=== PATIENT | male | born 2000 | race Caucasian/White ===

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

== ENCOUNTER 2020-03-12 11:57 | Emergency (ER) | payer OTHER ==
[~2020-03-12] VITALS: Ht 167.6 cm; Wt 89.5 kg
[2020-03-12 12:08] VITALS: BP 147/67
--- NOTE | 2020-03-12 12:14 | PHYS DOC ---
Past History Past Medical History: Asthma, Bipolar, Other Past Surgical History: No Surgical History Smoking: Cigarettes Alcohol Use: Occasionally Drug Use: Marijuana Adult General Chief Complaint Chief Complaint: INSECT BITE HPI HPI Patient is a 19-year-old otherwise healthy male who presents for "insect bites". Patient reports he has 1 on left lateral forehead, one on his right chin, and one on his anterior right leg. He is unsure what bit him. He reports they "look like pimples with a best, drained some clear fluids, and then got red". He has been putting hydrogen peroxide on these sites. He has not taken anything for pain, denies any pain. Denies any other concerning symptoms such as constitutional symptoms such as COVID, no fever, no recent travel, no recent tick bites or other concerning external vector/stimulus. He reports to ER today because several of his friends told him he should get checked out Review of Systems Review of Systems Fourteen body systems of review of systems have been reviewed. See HPI for pe rtinent positives and negative responses, other solares all other systems are negative, non-pertinent or non-contributory Allergies Allergies Allergies Coded Allergies Type Severity Reaction Last Updated Verified No Known Drug Allergies 09/16/17 No Physical Exam Physical Exam Constitutional: Well developed, well nourished, no acute distress, non-toxic appearance. HENT: Normocephalic, atraumatic, bilateral external ears normal, oropharynx moist, no oral exudates, nose normal. Mild excoriation noted to left lateral forehead and right anterior chin. Site of previous pimples with mild excoriation and skin irritation likely from hydrogen peroxide use Eyes: PERRLA, EOMI, conjunctiva normal, no discharge. Neck: Normal range of motion, no tenderness, supple, no stridor. Cardiovascular:Heart rate regular, sinus rhythm, no murmurs rubs or gallops Lungs & Thorax: Bilateral breath sounds clear to auscultation Abdomen: Bowel sounds normal, soft, no tenderness, no masses, no pulsatile masses. Nonsurgical abdomen, no peritoneal signs Skin: Warm, dry, no erythema, no rash. Excoriation noted to right anterior knee, clinically represent sequelae of resolving folliculitis of x1 hair follicle Back: No tenderness, no CVA tenderness. Extremities: No tenderness, no cyanosis, no clubbing, ROM intact, no edema. Neurologic: Alert and oriented X 3, grossly normal motor & sensory function, no focal deficits noted. Psychologic: Affect normal, judgement normal, mood normal. EKG EKG [] Radiology/Procedures Radiology/Procedures [] Course & Med Decision Making Course & Med Decision Making Patient seen initially on rooming to our ED Vital signs reviewed, hemodynamically stable in no apparent distress and self ambulatory Extensive history and physical exam performed with no concerning/emergent pathology noted Patient asymptomatic, presenting symptoms likely sequelae from resolving folliculitis with potential concern for skin irritation caused by hydrogen peroxide use Supportive care advised. Recommended patient stop using hydrogen peroxide. Recommended continued good hygiene in addition to OTC Aquaphor use Strict return precautions were discussed with good understanding by patient, all questions and concerns addressed prior to discharge Advised patient to follow-up with local PCP for continuity of care in outpatient setting [place] Disclaimer Dragon Disclaimer This electronic medical record was generated, in whole or in part, using a voice recognition dictation system. Departure Departure: Impression: Primary Impression: Folliculitis Disposition: 01 HOME/RESIDENCE PRIOR TO ADM Condition: STABLE Referrals: PCP,NO (PCP) Patient Instructions: Folliculitis Justification of Admission: Justification of Admission: Justification of Admission Dx: N/A ASHOK RED DO Mar 12, 2020 12:14
== END 2020-03-12 12:17 | disposition home or self-care (01) ==
LOC: ER 11:57
DX: L73.9 Follicular disorder, unspecified (principal); F17.210 Nicotine dependence, cigarettes, uncomplicated
CPT/HCPCS: 99281

== ENCOUNTER 2021-08-07 13:19 | Emergency (ER) | payer OTHER ==
[~2021-08-07] VITALS: Ht 180.3 cm; Wt 96.2 kg
[2021-08-07 13:25] VITALS: BP 108/81
--- NOTE | 2021-08-07 13:42 | PHYS DOC ---
Past History Past Medical History: No Pertinent History (GEORGE LOVE APRN) Past Surgical History: No Surgical History (GEORGE LOVE APRN) Smoking: Cigarettes Alcohol Use: Occasionally Drug Use: Marijuana (GEORGE LOVE APRN) Adult General Chief Complaint Chief Complaint: FOOT INJURY PAIN HPI HPI Patient is a 20-year-old male patient presenting today complaining of mild throbbing intermittent right foot pain, symptoms began 3 weeks ago after he rolled his ankle. Patient denies any ankle pain. States he is tired of the pain has the result he came to the ED today to be evaluated. Reports the pain is worse on weightbearing. Denies anything specifically relieving the pain. (GEORGE LOVE APRN) Review of Systems Review of Systems Constitutional: Denies fever or chills [] Musculoskeletal: Reports right foot pain Integument: Denies rash or skin lesions [] Neurologic: Denies headache, focal weakness or sensory changes [] All other systems were reviewed and found to be within normal limits, except as documented in this note. (GEORGE LOVE APRN) Allergies Allergies Allergies Coded Allergies Type Severity Reaction Last Updated Verified No Known Drug Allergies 09/16/17 No (GEORGE LOVE APRN) Physical Exam Physical Exam Constitutional: Well developed, well nourished, no acute distress, non-toxic appearance. [] Skin: Warm, dry, no erythema, no rash. [] Back: No tenderness, no CVA tenderness. [] Extremities: Right foot with no obvious deformity. Small amount of soft tissue swelling noted on the right lateral foot. No tenderness in the foot, no navicular tenderness, no base of the fifth metatarsal tenderness. Full range of motion to the right foot and ankle. +2 right pedal pulse. Cap refill less than 2 seconds to right toes Neurologic: Alert and oriented X 3, normal motor function, normal sensory function, no focal deficits noted. [] Psychologic: Affect normal, judgement normal, mood normal. [] (GEORGE LOVE APRN) EKG EKG [] (GEORGE LOVE APRN) Radiology/Procedures Radiology/Procedures []PROCEDURE: FOOT RIGHT 3V EXAM: Right foot, 3 views. HISTORY: Pain. COMPARISON: None. FINDINGS: 3 views of the right foot are obtained. There is no fracture, dislocation or subluxation. IMPRESSION: No acute osseous finding. Electronically signed by: Patsy Linares MD (08/07/2021 2:32 PM) [id number] DICTATED AND SIGNED BY: PATSY LINARES MD DATE: 08/07/21 143 CC: GEORGE LOVE APRN; RENETTA SOLORZANO MD ~MTH0 0 (GEORGE LOVE APRN) Heart Score C/O Chest Pain: N/A Risk Factors: Risk Factors: DM, Current or recent (<one month) smoker, HTN, HLP, family history of CAD, obesity. Risk Scores: Risk Factors: DM, Current or recent (<one month) smoker, HTN, HLP, family history of CAD, obesity. (GEORGE LOVE APRN) Course & Med Decision Making Course & Med Decision Making Pertinent Labs and Imaging studies reviewed. (See chart for details) This is a 20-year-old male patient presented to the ED today with right foot pain that began after he rolled his ankle. Denies any ankle pain Right foot x-rays interpreted by radiologist are negative for any acute findings, discharged to home. Follow-up with PCP orthopedic doctor in 1 week if pain persist, ice elevation encouraged, OTC pain relievers. (GEORGE LOVE APRN) Dragon Disclaimer Dragon Disclaimer This electronic medical record was generated, in whole or in part, using a voice recognition dictation system. (GEORGE LOVE APRN) Attending Co-Sign The patient was seen and interviewed as well as examined at the bedside. The chart was reviewed. The case was discussed. Agree with the plan of care. (DEVORAH PARK DO) Departure Departure: Impression: Primary Impression: Right foot sprain Disposition: HOME / SELF CARE / HOMELESS Condition: STABLE Referrals: RENETTA SOLORZANO MD (PCP) follow up in one week Patient Instructions: Foot Sprain-Brief Additional Instructions: You were seen for right foot pain, your right foot x-rays are negative for any acute findings, follow-up with your primary care doctor or orthopedic doctor in 1 to 2 weeks as needed. Try to ice and elevate the extremity. Problem Qualifiers Primary Impression: Right foot sprain Encounter type: initial encounter Qualified Codes: S93.601A - Unspecified sprain of right foot, initial encounter GEORGE LOVE APRN Aug 07, 2021 13:42 DEVORAH PARK DO Aug 09, 2021 06:09
--- NOTE | 2021-08-07 14:34 | RAD ---
EXAM: Right foot, 3 views. HISTORY: Pain. COMPARISON: None. FINDINGS: 3 views of the right foot are obtained. There is no fracture, dislocation or subluxation. IMPRESSION: No acute osseous finding. Electronically signed by: Pasty Dunn MD (08/07/2021 2:32 PM) [id number]
== END 2021-08-07 14:47 | disposition home or self-care (01) ==
LOC: ER 13:19
DX: S93.601A Unspecified sprain of right foot, initial encounter (principal); F17.200 Nicotine dependence, unspecified, uncomplicated; X50.9XXA Other and unspecified overexertion or strenuous movements or postures, initial encounter; Y93.89 Activity, other specified; Y92.89 Other specified places as the place of occurrence of the external cause; Y99.8 Other external cause status
CPT/HCPCS: 73630; 99283